=== PATIENT | male | born 1975 | race Caucasian/White ===

== ENCOUNTER 2017-10-13 10:24 | Emergency (ER) | payer BC, OTHER ==
[~2017-10-13] VITALS: Ht 167.6 cm; Wt 68.0 kg
[2017-10-13 10:40] VITALS: BP 145/79
== END 2017-10-13 11:54 | disposition home or self-care (01) ==
LOC: ER 10:32
DX: M75.02 Adhesive capsulitis of left shoulder (principal); Z88.8 Allergy status to other drugs, medicaments and biological substances
CPT/HCPCS: 73030; 93005